=== PATIENT | male | born 1955 | race Caucasian/White ===

== ENCOUNTER 2021-02-26 09:06 | Day surgery (SDC) | payer BC ==
[~2021-02-26 09:06] MED LIST: Metoclopramide 10 MG/2 ML SDV IV PRN; Sodium Chloride 0.9% 1,000 ML IV SCH
[2021-02-26] MEDS ORDERED: Propofol 1,000 MG/100 ML SDV ONE (11:45)
--- NOTE | 2021-02-26 18:05 | OR ---
DATE OF OPERATION: 02/26/2021 SURGEON: Timur Cohen MD PREOPERATIVE DIAGNOSIS: Positive Cologuard test. POSTOPERATIVE DIAGNOSIS: Positive Cologuard test. PROCEDURE: Colonoscopy with polypectomy. ANESTHESIA: MAC. ESTIMATED BLOOD LOSS: Minimal. COMPLICATIONS: None. INDICATION FOR THE PROCEDURE: Patient is a 66-year-old male who last had a colonoscopy 14 years ago and was normal at that time. He denies any change of bowel habits since then. Recently had a Cologuard test which was positive several months ago. He is here today for colonoscopy. DESCRIPTION OF PROCEDURE: Informed consent was obtained from the patient. The patient was taken to the operating room and placed on table in left lateral decubitus position. Monitored anesthesia care was administered. Digital rectal exam performed was normal. Colonoscope then advanced through the anus directed toward the cecum. Cecum was reached, identified by appendiceal orifice and ileocecal valve. Colonoscope then slowly withdrawn. He did have a small sessile polyp in the proximal ascending colon. This was removed with hot forceps polypectomy. Blood loss was minimal. Remainder of the colon was otherwise unremarkable. As the colonoscope was withdrawn, rectum was also unremarkable. Colonoscope then fully withdrawn. FINDINGS: Ascending colon polyp. RECOMMENDATIONS: We will follow up on pathology. However, if appears benign, we would recommend repeat surveillance colonoscopy in 5 years. FARTUN /[id number]
== END 2021-02-26 13:28 | disposition home or self-care (01) ==
LOC: LB.SDS 09:06
PROVIDERS: ATTEND Surgery
DX: D12.2 Benign neoplasm of ascending colon (principal); I10 Essential (primary) hypertension; J45.909 Unspecified asthma, uncomplicated; E11.9 Type 2 diabetes mellitus without complications; Z88.0 Allergy status to penicillin; Z88.2 Allergy status to sulfonamides; Z88.1 Allergy status to other antibiotic agents
CPT/HCPCS: 82947; 88305; J2704; J2765; J7030